=== PATIENT | female | born 1985 | race Caucasian/White ===

== ENCOUNTER 2018-02-21 16:24 | Emergency (ER) | payer OTHER ==
[2018-02-21 16:37] VITALS: BMI 26.8
[2018-02-21] MEDS ORDERED: SODIUM CHLORIDE 1,000 ML IV STA (16:39)
--- NOTE | 2018-02-21 16:40 | PDOC ---
Rapid Medical Evaluation Time Seen by Provider: 02/21/18 16:34 Medical Evaluation: Allergies Allergy/AdvReac Type Severity Reaction Status Date / Time No Known Allergies Allergy Verified 02/21/18 16:33 02/21/18 16:34 Pt presents to the ED for nausea and vomiting. Pt is 9 weeks . States she is unable to keep anything down for the past week. Reports a 16 pound weight loss . LMP 01/17/19. . Denies vaginal bleeding and cramping. Exam: Pt appears pale, NAD Orders: Labs, urine, IV insert, Fluids Pt to proceed to the ED for further evaluation Discharge Disposition - Diagnosis Nausea & vomiting - Referrals - Patient Instructions - Post Discharge Activity
[2018-02-21] MEDS ORDERED: ONDANSETRON 4 MG/2 ML VIAL IVPB ONE (16:49)
--- NOTE | 2018-02-21 17:06 | PDOC ---
History of Present Illness - General Chief Complaint: Nausea/Vomiting Stated Complaint: DEHYDRATION/9 WKS Time Seen by Provider: 02/21/18 16:34 History Source: Patient Exam Limitations: No Limitations - History of Present Illness Initial Comments: 02/21/18 17:02 CHIEF COMPLAINT: Vomiting HISTORY OF PRESENT ILLNESS: This is a previously healthy 32-year-old LMP December 17 who presents with 4 weeks of vomiting. She has been having worsening daily vomiting, about 5 episodes daily, and for the past 1.5 weeks has not been able to keep down any food. She has been unable to keep down fluids for several days. She reports 16 pound weight loss during this . She complains of headache and generalized weakness. She denies abdominal pain, vaginal bleeding, dysuria, or any other symptoms. Vital signs on arrival are unremarkable. Smoking: None Alcohol: None Drugs: None Social history: Lives with mother OB care: Received care at [facility] in [place]. Has visiting nurse coordinated through [facility] for first , unrelated to the symptoms. Has not yet had an ultrasound for this . REVIEW OF SYSTEMS: GENERAL/CONSTITUTIONAL: No fever or chills. 16 lb weight loss over past month. HEAD, EYES, EARS, NOSE AND THROAT: No change in vision. No ear pain or discharge. No sore throat. CARDIOVASCULAR: No chest pain or palpitations. RESPIRATORY: No cough, wheezing, or shortness of breath. GASTROINTESTINAL: See HPI. GENITOURINARY: No dysuria, frequency, or change in urination. MUSCULOSKELETAL: No joint or muscle swelling or pain. No neck or back pain. SKIN: No rash or easy bruising. NEUROLOGIC: Mild headache. No vertigo, loss of consciousness, or loss of sensation. PSYCHIATRIC: No depression or anxiety. ENDOCRINE: No increased thirst. No abnormal weight change. HEMATOLOGIC/LYMPHATIC: No anemia, easy bleeding, or history of blood clots. ALLERGIC/IMMUNOLOGIC: No hives or skin allergy. No latex allergy. PHYSICAL EXAM: GENERAL: The patient is awake, alert, and fully oriented, in no acute distress. HEAD: Normal with no signs of trauma. ENT: Mucous membranes very dry. Pupils equal, round and reactive to light, extraocular movements intact, sclera anicteric, conjunctiva clear. Neck supple. LUNGS: Clear to auscultation bilaterally. Normal excursion. No respiratory distress or use of accessory muscles. CV: RRR, S1/S2, no MRG. Cap refill < 2 sec. ABDOMEN: Soft, non-distended, non-tender. EXTREMITIES: Normal range of motion, no edema. NEUROLOGICAL: Normal speech, normal gait. CN II-XII grossly intact. PSYCH: Normal mood, normal affect. SKIN: Warm, dry, normal turgor, no rashes or lesions noted. Past History - Past Medical History Allergies/Adverse Reactions: Allergies Allergy/AdvReac Type Severity Reaction Status Date / Time No Known Allergies Allergy Verified 02/21/18 16:33 Home Medications: Ambulatory Orders Famotidine [Pepcid] 20 mg PO DAILY #30 tablet 02/21/18 Ondansetron [Zofran Odt -] 4 mg SL TID PRN #21 od.tablet 02/21/18 COPD: No - Immunization History Immunization Up to Date: Yes - Suicide/Smoking/Psychosocial Hx Smoking History: Never smoked *Physical Exam - Vital Signs Last Vital Signs Temp Pulse Resp BP Pulse Ox 98.7 F 70 18 125/74 99 02/21/18 16:34 02/21/18 16:34 02/21/18 16:34 02/21/18 16:34 02/21/18 16:34 ED Treatment Course - LABORATORY CBC & Chemistry Diagram: 02/21/18 17:12 02/21/18 17:12 - RADIOLOGY Radiology Studies Ordered: Category Date Time Status <14WKS US [US] Stat Ultrasound 02/21/18 16:50 Ordered Medical Decision Making - Medical Decision Making 02/21/18 17:05 A/P: 32-year-old female with hyperemesis gravidarum. 1. Labs including CBC CMP, UA 2. Ultrasound to assess well-being (no prior ultrasound during this ) 3. IV fluids 4. Zofran 8 mg IV piggyback for nausea 5. PO trial 02/21/18 19:20 Patient is feeling better and is tolerating apple juice. Ultrasound reviewed: Single live IUP 10 weeks with heart rate 176. *DC/Admit/Observation/Transfer Diagnosis at time of Disposition: First trimester Nausea & vomiting Qualifiers: Vomiting type: unspecified Vomiting Intractability: non-intractable Qualified Code(s): R11.2 - Nausea with vomiting, unspecified - Discharge Dispostion Disposition: HOME Condition at time of disposition: Stable Decision to Admit order: No - Prescriptions Prescriptions: Famotidine [Pepcid] 20 mg PO DAILY #30 tablet Ondansetron [Zofran Odt -] 4 mg SL TID PRN #21 od.tablet PRN Reason: Nausea - Referrals - Patient Instructions Printed Discharge Instructions: DI for Hyperemesis Gravidarum Additional Instructions: -Take Zofran for nausea and Pepcid for stomach discomfort as needed -Rest and stay well-hydrated; slowly introduce plain foods as tolerated -Follow up with [facility] next week -Return if you are unable to keep down fluids, or for any other concerning symptoms - Post Discharge Activity
[2018-02-21] MEDS ORDERED: FAMOTIDINE 20 MG/50 ML IVPB 20 MG in PREMIX 50 IVPB ONE (17:22)
[2018-02-21] MEDS ORDERED: ONDANSETRON 4 MG/2 ML VIAL ONE (17:23)
[2018-02-21] MEDS ORDERED: FAMOTIDINE 20 MG/50 ML IVPB 20 MG/50 ML MG IVPB ONE (17:24)
[2018-02-21 17:37] LABS: BASO % 0.3 % (0-2.0); EOS % 0.1 % (0-4.5); HEMATOCRIT 40.5 % (32.4-45.2); HEMOGLOBIN 14.3 GM/dL (10.7-15.3); LYMPH % 14.4 % (8-40); MCH 32.9 pg (25.7-33.7); MCHC 35.2 g/dl (32.0-36.0); MEAN CELL VOLUME 93.4 fl (80-96); MEAN PLT VOLUME 9.6 fl (7.5-11.1); MONO % 4.5 % (3.8-10.2); NEUT % 80.7 % (42.8-82.8); PLATELET COUNT 223 K/MM3 (134-434); RBC 4.34 M/mm3 (3.60-5.2); RDW 12.2 % (11.6-15.6); WHITE BLOOD COUNT 9.5 K/mm3 (4.0-10.0)
[2018-02-21 17:47] LABS: ALBUMIN 3.7 g/dl (3.4-5.0); ALK PHOS 19 U/L (45-117); ANION GAP 11 MMOL/L (8-16); BILIRUBIN,TOTAL 0.7 mg/dL (0.2-1.0); BLOOD UREA NITROGEN 8 mg/dL (7-18); CALCIUM 9.3 mg/dL (8.5-10.1); CHLORIDE 106 mmol/L (98-107); CO2 20 mmol/L (21-32); CREATININE 0.5 mg/dL (0.55-1.3); GLUCOSE,RANDOM 88 mg/dL (74-106); SGOT/AST 15 U/L (15-37); SGPT/ALT 30 U/L (13-61); SODIUM 137 mmol/L (136-145); TOT PROT 7.3 g/dl (6.4-8.2)
[2018-02-21] MEDS ORDERED: DEXTROSE 5%-NORMAL SALINE 1,000 ML IV SCH (18:30)
[2018-02-21 20:10] LABS: URINE APPEARANCE SLCLOUDY; URINE BILIRUBIN NEGATIVE (<2.0 mg/dL); URINE COLOR DKYELLOW; URINE GLUCOSE (UA) 3+ (NEGATIVE); URINE KETONE 2+ (NEGATIVE); URINE LEUK ESTERASE NEGATIVE (NEGATIVE); URINE NITRITE NEGATIVE (NEGATIVE); URINE PROTEIN NEGATIVE (NEGATIVE); URINE UROBILINOGEN NEGATIVE mg/dL (0.2-1.0)
[2018-02-21 20:53] VITALS: BP 126/74; PULSE 72; TEMP 98.6
== END 2018-02-21 20:53 | disposition home or self-care (01) ==
LOC: JER 16:24
PROC: 3E0337Z Introduction of Electrolytic and Water Balance Substance into Peripheral Vein, Percutaneous Approach (ICD-10-PCS; principal; 2018-02-21)
PROC: 3E033GC Introduction of Other Therapeutic Substance into Peripheral Vein, Percutaneous Approach (ICD-10-PCS; 2018-02-21)
PROC: 3E033GC Introduction of Other Therapeutic Substance into Peripheral Vein, Percutaneous Approach (ICD-10-PCS; 2018-02-21)
DX: O26.891 Other specified pregnancy related conditions, first trimester (principal); O21.0 Mild hyperemesis gravidarum; Z3A.10 10 weeks gestation of pregnancy
CPT/HCPCS: 36415; 76801-TC; 80053; 81003; 85025; 87086; 99284-25; J7030

== ENCOUNTER 2018-03-03 12:38 | Emergency (ER) | payer OTHER ==
[2018-03-03 12:48] VITALS: BMI 26.8
[2018-03-03] MEDS ORDERED: DEXTROSE 5%-NORMAL SALINE 1,000 ML IV ONE (13:32)
[2018-03-03] MEDS ORDERED: ONDANSETRON 4 MG/2 ML VIAL IVPUSH ONE (13:57)
[2018-03-03] MEDS ORDERED: FAMOTIDINE 20 MG/50 ML IVPB 20 MG/50 ML MG IVPB ONE ×2 (13:58→14:02)
[2018-03-03 14:01] LABS: BASO % 0.4 % (0-2.0); EOS % 0.1 % (0-4.5); HEMATOCRIT 39.8 % (32.4-45.2); HEMOGLOBIN 14.2 GM/dL (10.7-15.3); LYMPH % 11.5 % (8-40); MCH 33.2 pg (25.7-33.7); MCHC 35.6 g/dl (32.0-36.0); MEAN CELL VOLUME 93.2 fl (80-96); MEAN PLT VOLUME 9.1 fl (7.5-11.1); MONO % 3.9 % (3.8-10.2); NEUT % 84.1 % (42.8-82.8); PLATELET COUNT 212 K/MM3 (134-434); RBC 4.27 M/mm3 (3.60-5.2); RDW 12.5 % (11.6-15.6); WHITE BLOOD COUNT 9.1 K/mm3 (4.0-10.0)
[2018-03-03] MEDS ORDERED: ONDANSETRON 4 MG/2 ML VIAL ONE (14:02)
[2018-03-03 14:39] LABS: ALBUMIN 3.5 g/dl (3.4-5.0); ALK PHOS 20 U/L (45-117); ANION GAP 9 MMOL/L (8-16); BILIRUBIN,TOTAL 0.8 mg/dL (0.2-1); BLOOD UREA NITROGEN 7 mg/dL (7-18); CALCIUM 9.2 mg/dL (8.5-10.1); CHLORIDE 105 mmol/L (98-107); CO2 22 mmol/L (21-32); CREATININE 0.5 mg/dL (0.55-1.3); GLUCOSE,RANDOM 79 mg/dL (74-106); LIPASE 116 U/L (73-393); MAGNESIUM 2.1 mg/dL (1.8-2.4); SGOT/AST 20 U/L (15-37); SGPT/ALT 36 U/L (13-61); SODIUM 136 mmol/L (136-145)
--- NOTE | 2018-03-03 15:02 | PDOC ---
History of Present Illness - General Chief Complaint: Nausea/Vomiting Stated Complaint: 13 WEEKS /HG Time Seen by Provider: 03/03/18 13:27 History Source: Patient Exam Limitations: No Limitations - History of Present Illness Travel History: No Initial Comments: 03/03/18 15:03 32-year-old female with no past medical history presents to ED with continual nausea and vomiting despite taking Zofran for hyperemesis gravidarum. Patient states is currently 13 weeks is followed by [facility] and states has been able to tolerate liquids and solids since yesterday afternoon now with generalized fatigue and upper abdominal burning. Patient has no other complaints at this time. Timing/Duration: reports: intermittent Quality: reports: mild, burning Abdominal Pain Onset Location: reports: epigastric Activities at Onset: reports: eating Aggravating Factors: improves with: Eating Alleviating Factors: improves with: None Past History - Travel Traveled outside of the country in the last 30 days: No - Past Medical History Allergies/Adverse Reactions: Allergies Allergy/AdvReac Type Severity Reaction Status Date / Time No Known Allergies Allergy Verified 03/03/18 12:48 Home Medications: Ambulatory Orders Famotidine [Pepcid] 20 mg PO DAILY #30 tablet 02/21/18 Ondansetron [Zofran Odt -] 4 mg SL TID PRN #21 od.tablet 02/21/18 Ondansetron [Zofran Odt -] 8 mg SL TID PRN #21 od.tablet 03/03/18 COPD: No - Immunization History Immunization Up to Date: Yes - Suicide/Smoking/Psychosocial Hx Smoking History: Never smoked Patient Lives Alone: No Lives with/in: parents Review of Systems - Review of Systems Able to Perform ROS?: No Constitutional: Yes: Loss of Appetite, Weakness HEENTM: No: Symptoms Reported Respiratory: No: Symptoms reported Cardiac (ROS): No: Symptoms Reported ABD/GI: Yes: Nausea, Poor Appetite, Poor Fluid Intake, Vomiting, Abdominal cramping : No: Symptoms Reported Musculoskeletal: No: Symptoms Reported Integumentary: No: Symptoms Reported Neurological: No: Symptoms reported Hematologic/Lymphatic: No: Symptoms Reported *Physical Exam - Vital Signs Last Vital Signs Temp Pulse Resp BP Pulse Ox 99.3 F 79 18 107/69 99 03/03/18 12:45 03/03/18 12:45 03/03/18 12:45 03/03/18 12:45 03/03/18 12:45 - Physical Exam General Appearance: Yes: Nourished, Appropriately Dressed. No: Apparent Distress HEENT: positive: EOMI, PIPPA, TMs Normal, Pharynx Normal (dry). negative: Pale Conjunctivae Neck: positive: Supple Respiratory/Chest: positive: Lungs Clear, Normal Breath Sounds. negative: Respiratory Distress, Accessory Muscle Use Cardiovascular: positive: Regular Rhythm, Regular Rate. negative: Murmur Gastrointestinal/Abdominal: positive: Soft, Tenderness (Mild epigastric . no right upper quadrant or lower quadrant tenderness.) Musculoskeletal: negative: CVA Tenderness Extremity: positive: Normal Capillary Refill. negative: Pedal Edema Integumentary: positive: Normal Color, Warm, Moist Neurologic: positive: Motor Strength 5/5 (ambulatory) ED Treatment Course - LABORATORY CBC & Chemistry Diagram: 03/03/18 13:50 03/03/18 13:50 - ADDITIONAL ORDERS Additional order review: Laboratory Results 03/03/18 13:50 Sodium 136 Potassium 4.0 Chloride 105 Carbon Dioxide 22 Anion Gap 9 BUN 7 Creatinine 0.5 L Creat Clearance w eGFR > 60 Random Glucose 79 Calcium 9.2 Magnesium 2.1 Total Bilirubin 0.8 AST 20 ALT 36 Alkaline Phosphatase 20 L Total Protein 7.0 Albumin 3.5 Lipase 116 03/03/18 13:50 RBC 4.27 MCV 93.2 MCHC 35.6 RDW 12.5 MPV 9.1 Neutrophils % 84.1 H Lymphocytes % 11.5 D Monocytes % 3.9 Eosinophils % 0.1 Basophils % 0.4 - Medications Given in the ED: ED Medications Discontinued Medications Generic Name Dose Route Start Last Admin Trade Name Freq PRN Reason Stop Dose Admin Dextrose/Sodium Chloride 1,000 mls @ 1,000 mls/hr 03/03/18 13:32 03/03/18 13: 58 D5-Ns - IV 03/03/18 14:31 1,000 mls/hr ONCE ONE Administration Famotidine/Sodium Chloride 20 mg in 50 mls @ 100 mls/hr 03/03/18 13:58 14:02 Pepcid 20 Mg Premixed Ivpb - IVPB 03/03/18 14:27 100 mls/hr ONCE ONE Administration Ondansetron HCl 4 mg 03/03/18 13:57 03/03/18 14:02 Zofran Injection IVPUSH 03/03/18 13:58 4 mg ONCE ONE Administration Medical Decision Making - Medical Decision Making 03/03/18 15:07 Patient with hyperemesis gravidarum with no improvement after taking Zofran 4 mg sublingual as prescribed at her RN [facility]. Patient was here approximately 10 days ago had a confirmed single IUP at 10 weeks 0 days with normal laboratory findings. Patient arrives with dry mucous membranes concerning for dehydration, electrolyte derangement, and UTI. Patient ordered for labs, fluids antiemetics and will reevaluate shortly. 03/03/18 17:17 Laboratory Tests 03/03/18 17:00 Urine Protein 1+ H Urine Glucose (UA) 3+ H Urine Ketones 2+ H Urine Bilirubin Negative Urine Urobilinogen 2.0 H Ur Leukocyte Esterase Trace Urine WBC (Auto) 7 Urine RBC (Auto) 1 Ur Epithelial Cells Rare Urine Mucus Many Laboratory Tests 03/03/18 03/03/18 13:50 13:50 WBC 9.1 Hgb 14.2 Hct 39.8 Neutrophils % 84.1 H Sodium 136 Potassium 4.0 Chloride 105 Carbon Dioxide 22 Anion Gap 9 BUN 7 Creatinine 0.5 L Random Glucose 79 Calcium 9.2 Magnesium 2.1 Total Bilirubin 0.8 AST 20 ALT 36 Alkaline Phosphatase 20 L Total Protein 7.0 Albumin 3.5 Lipase 116 Was given a second liter of normal saline. Patient tolerating apple juice and ice chips. Patient be given a prescription for Zofran 8 mg versus for since she only has 1 tablet left. Patient also has no urinary complaints and urine culture was sent *DC/Admit/Observation/Transfer Diagnosis at time of Disposition: Nausea & vomiting - Discharge Dispostion Disposition: HOME Condition at time of disposition: Improved - Referrals - Patient Instructions Printed Discharge Instructions: DI for Hyperemesis Gravidarum Additional Instructions: Please eat small frequent meals that are bland and easy to swallow. Please take Zofran as prescribed from you new prescription given today. If symptoms do not improve please return to ED. Otherwise follow up with your RN [facility]. - Post Discharge Activity
[2018-03-03] MEDS ORDERED: SODIUM CHLORIDE 1,000 ML IV STA (15:08)
[2018-03-03 17:11] LABS: URINE APPEARANCE SLCLOUDY; URINE BILIRUBIN NEGATIVE (<2.0 mg/dL); URINE COLOR DKYELLOW; URINE GLUCOSE (UA) 3+ (NEGATIVE); URINE KETONE 2+ (NEGATIVE); URINE LEUK ESTERASE TRACE (NEGATIVE); URINE NITRITE NEGATIVE (NEGATIVE)
[2018-03-03 17:14] LABS: URINE PROTEIN 1+ (NEGATIVE)
[2018-03-03 17:16] LABS: EPI CELLS RARE /HPF (FEW); URINE MUCUS MANY
[2018-03-03 17:24] VITALS: BP 112/62; PULSE 84; TEMP 99.8
== END 2018-03-03 17:30 | disposition home or self-care (01) ==
LOC: JER 12:38
PROC: 3E0337Z Introduction of Electrolytic and Water Balance Substance into Peripheral Vein, Percutaneous Approach (ICD-10-PCS; principal; 2018-03-03)
PROC: 3E033GC Introduction of Other Therapeutic Substance into Peripheral Vein, Percutaneous Approach (ICD-10-PCS; 2018-03-03)
PROC: 3E033GC Introduction of Other Therapeutic Substance into Peripheral Vein, Percutaneous Approach (ICD-10-PCS; 2018-03-03)
DX: O26.891 Other specified pregnancy related conditions, first trimester (principal); O21.0 Mild hyperemesis gravidarum; Z3A.13 13 weeks gestation of pregnancy
CPT/HCPCS: 36415; 80053; 81003; 81015; 83690; 83735; 85025; 87086; 96361; 96365; 96375; 99283-25; J7030

== ENCOUNTER 2018-08-21 08:51 | Emergency (ER) | payer OTHER ==
[2018-08-21 08:57] VITALS: BMI 29.1
[2018-08-21] MEDS ORDERED: SODIUM CHLORIDE 500 ML IV STA (09:33)
[2018-08-21] MEDS ORDERED: METOCLOPRAMIDE HCL INJECTION 10 MG/2 ML VIAL IVPUSH ONE (09:33)
[2018-08-21] MEDS ORDERED: METOCLOPRAMIDE HCL INJECTION 10 MG/2 ML VIAL ONE (09:45)
--- NOTE | 2018-08-21 09:46 | PDOC ---
History of Present Illness - General Chief Complaint: Lightheaded Stated Complaint: DIZZNESS/VOMITING 35WKS/PRG Time Seen by Provider: 08/21/18 09:33 History Source: Patient Exam Limitations: Clinical Condition - History of Present Illness Initial Comments: 08/21/18 09:41 Patient with 35 weeks no past medical history present with complaint of sudden onset of dizziness, nausea and light sensitivity after sitting movement of the hand when getting out of bed this morning. Patient denies vomiting, fever, chills. Denies vaginal bleeding. Patient did not take anything for symptoms. Patient denies abdominal pains or diarrhea. Timing/Duration: 4-6 hours Past History - Past Medical History Allergies/Adverse Reactions: Allergies Allergy/AdvReac Type Severity Reaction Status Date / Time No Known Allergies Allergy Verified 08/21/18 08:54 Home Medications: Ambulatory Orders Aspirin 81 mg PO DAILY 08/21/18 Metoclopramide HCl [Reglan] 10 mg PO Q8H PRN #12 tablet 08/21/18 [place]-3 Fatty Acids [[place]-3] 1,000 mg PO DAILY 08/21/18 Pediatric Multivitamin No.42 [Flintstones] 1 each PO DAILY 08/21/18 COPD: No - Immunization History Immunization Up to Date: Yes - Suicide/Smoking/Psychosocial Hx Smoking History: Never smoked Hx Alcohol Use: No Drug/Substance Use Hx: No Review of Systems - Review of Systems Able to Perform ROS?: Yes Is the patient limited [place]an proficient: No Constitutional: No: Malaise, Weakness HEENTM: No: Symptoms Reported, See HPI, Eye Pain, Blurred Vision, Tearing, Recent change in vision, Double Vision, Cataracts, Ear Pain, Ocular Prothesis, Ear Discharge, Nose Pain, Nose Congestion, Tinnitus, Nose Bleeding, Hearing Loss , Throat Pain, Throat Swelling, Mouth Pain, Dental Problems, Difficulty Swallowing, Mouth Swelling, Other Respiratory: No: Symptoms reported, See HPI, Cough, Orthopnea, Shortness of Breath, SOB with Exertion, SOB at Rest, Stridor, Wheezing, Productive cough, Hemoptysis, Other Cardiac (ROS): No: Symptoms Reported, See HPI, Chest Pain, Edema, Irregular Heart Rate, Lightheadedness, Palpitations, Syncope, Chest Tightness, Other ABD/GI: Yes: Vomiting. No: Constipated, Diarrhea, Nausea, Abdominal cramping Neurological: Yes: See HPI, Dizziness. No: Headache, Weakness All Other Systems: Reviewed and Negative *Physical Exam - Vital Signs Last Vital Signs Temp Pulse Resp BP Pulse Ox 98.0 F 90 18 117/74 98 08/21/18 08:54 08/21/18 08:54 08/21/18 08:54 08/21/18 08:54 08/21/18 08:54 - Physical Exam Comments: 08/21/18 09:44 GENERAL: Well developed, well nourished. Awake and alert. No acute distress. HEENT: Normocephalic, atraumatic. PERRLA, EOMI. No conjunctival pallor. Sclera are non-icteric. Moist mucous membranes. Oropharynx is clear. NECK: Supple. Full ROM. CARDIOVASCULAR: Regular rate and rhythm. No murmurs, rubs, or gallops. Distal pulses are 2+ and symmetric. PULMONARY: No evidence of respiratory distress. Lungs clear to auscultation bilaterally. No wheezing, rales or rhonchi. ABDOMINAL: 35 week gravid abdomen.Soft. Non-tender. No rebound or guarding. No organomegaly. Normoactive bowel sounds. MUSCULOSKELETAL Normal range of motion at all joints. EXTREMITIES: No cyanosis. No clubbing. No edema. No calf tenderness. SKIN: Warm and dry. Normal capillary refill. No rashes. No jaundice. NEUROLOGICAL: Alert, awake, appropriate. Gait is normal without ataxia. PSYCHIATRIC: Cooperative. Good eye contact. Appropriate mood General Appearance: Yes: Nourished, Appropriately Dressed. No: Apparent Distress Moderate Sedation - Procedure Monitoring Vital Signs: Procedure Monitoring Vital Signs Temperature 98.0 F 08/21/18 08:54 Pulse Rate 90 08/21/18 08:54 Respiratory Rate 18 08/21/18 08:54 Blood Pressure 117/74 08/21/18 08:54 O2 Sat by Pulse Oximetry (%) 98 08/21/18 08:54 ED Treatment Course - LABORATORY CBC & Chemistry Diagram: 08/21/18 09:42 08/21/18 09:44 Medical Decision Making - Medical Decision Making 08/21/18 09:44 Patient 35 weeks with no medical history present with complaint of lightheadedness, spinning sensation and nausea was light sensitivity upon wake this morning. Patient denies vomiting or any other symptoms. Clinical exam unremarkable with normal neuro exam. Symptoms likely vertigo. CBC, CMP labs ordered. Reglan 10 mg IV and normal saline 500 mg IV ordered. Reassess after labs. 08/21/18 10:33 Patient report complete resolve of symptoms with reglan and IVFs. labs pending 08/21/18 10:45 labs with no significant findings. Patient stable for discharge with strict follow-up. Patient hads f/u tomorrow for Ultrasound by OB. Patient report feels better to go home and clear to be sent to L&D for evaluation prior to d/c *DC/Admit/Observation/Transfer Diagnosis at time of Disposition: Vertigo - Discharge Dispostion Disposition: HOME Condition at time of disposition: Stable Decision to Admit order: No - Prescriptions Prescriptions: Metoclopramide HCl [Reglan] 10 mg PO Q8H PRN #12 tablet PRN Reason: vertigo - Referrals - Patient Instructions Printed Discharge Instructions: Benign Paroxysmal Positional Vertigo Additional Instructions: Come back to emergency room if severe headache, dizziness with vomiting. Increase fluid intake. Follow-up tomorrow as scheduled by OB for ultrasound., To emergency room if new symptoms or vaginal bleeding. - Post Discharge Activity
[2018-08-21 09:57] LABS: BASO % 0.1 % (0-2.0); EOS % 0.4 % (0-4.5); HEMOGLOBIN 12.5 GM/dL (10.7-15.3); LYMPH % 16.9 % (8-40); MCH 34.1 pg (25.7-33.7); MCHC 34.8 g/dl (32.0-36.0); MEAN CELL VOLUME 98.1 fl (80-96); MEAN PLT VOLUME 7.6 fl (7.5-11.1); MONO % 6.4 % (3.8-10.2); NEUT % 76.2 % (42.8-82.8); PLATELET COUNT 201 K/MM3 (134-434); RBC 3.67 M/mm3 (3.60-5.2); RDW 13.4 % (11.6-15.6)
--- NOTE | 2018-08-21 10:03 | PDOC ---
*Physical Exam - Vital Signs Last Vital Signs Temp Pulse Resp BP Pulse Ox 98.0 F 90 18 117/74 98 08/21/18 08:54 08/21/18 08:54 08/21/18 08:54 08/21/18 08:54 08/21/18 08:54 ED Treatment Course - LABORATORY CBC & Chemistry Diagram: 08/21/18 09:42 08/21/18 09:44 - Medications Given in the ED: ED Medications Discontinued Medications Generic Name Dose Route Start Last Admin Trade Name Freq PRN Reason Stop Dose Admin Metoclopramide HCl 10 mg 08/21/18 09:33 08/21/18 09:53 Reglan Injection - IVPUSH 08/21/18 09:34 10 mg ONCE ONE Administration Medical Decision Making - Medical Decision Making 08/21/18 09:59 33 yp 35 week presenting with sudden onset of vertigo No headache Pt reports vomiting Pt neuro exam wnl Will do labs Will give IV F Likely BPPV vs Labrynthitis Unlikely dural sinus thrombosis given NO headache Will consult pt [employer] as well as Neuro Will re assess 08/21/18 10:43 Laboratory Tests 08/21/18 08/21/18 09:42 09:44 WBC 12.0 H Hgb 12.5 Hct 36.0 Plt Count 201 Sodium 139 Potassium 3.8 Chloride 108 H Carbon Dioxide 23 BUN 2 L* Creatinine 0.4 L Random Glucose 83 *DC/Admit/Observation/Transfer Diagnosis at time of Disposition: Vertigo - Discharge Dispostion Disposition: HOME Condition at time of disposition: Stable - Prescriptions Prescriptions: Metoclopramide HCl [Reglan] 10 mg PO Q8H PRN #12 tablet PRN Reason: vertigo - Referrals Referrals: Chayito Solares MD [Staff Physician] - (DISCHARGE HOME; DRINK 6-8 GLASSES OF WATER A DAY AND EAT SMALL FREQUENT LIGHT MEALS;IF N/V PERSISTS RETURN TO HOSPITAL; WHEN CONTRACTIONS ARE EVERY FIVE MINUTES, IF YOUR WATER BREAKS, IF YOU EXPERIENCE VAGINAL BLEEDING LIKE A PERIOD OR DECREASED MOVEMENT RETURN TO HOSPITAL; IF NO CHANGE KEEP SCHEDULED US APPOINTMENT FOR TOMORROW AND VISIT ON ; ANY QUESTIONS/PROBLEMS CALL CLINIC OR LABOR AREA [phone]) - Patient Instructions Printed Discharge Instructions: Benign Paroxysmal Positional Vertigo Additional Instructions: Come back to emergency room if severe headache, dizziness with vomiting. Increase fluid intake. Follow-up tomorrow as scheduled by OB for ultrasound., To emergency room if new symptoms or vaginal bleeding. DISCHARGE HOME; DRINK 6-8 GLASSES OF WATER A DAY AND EAT SMALL FREQUENT LIGHT MEALS;IF N/V PERSISTS RETURN TO HOSPITAL; WHEN CONTRACTIONS ARE EVERY FIVE MINUTES, IF YOUR WATER BREAKS, IF YOU EXPERIENCE VAGINAL BLEEDING LIKE A PERIOD OR DECREASED MOVEMENT RETURN TO HOSPITAL; IF NO CHANGE KEEP SCHEDULED US APPOINTMENT FOR TOMORROW AND VISIT ON ; ANY QUESTIONS/PROBLEMS CALL CLINIC OR LABOR AREA [phone] - Post Discharge Activity
[2018-08-21 10:24] LABS: ALBUMIN 2.6 g/dl (3.4-5.0); ALK PHOS 68 U/L (45-117); ANION GAP 7 MMOL/L (8-16); BILIRUBIN,TOTAL 0.3 mg/dL (0.2-1); CALCIUM 9.1 mg/dL (8.5-10.1); CHLORIDE 108 mmol/L (98-107); CO2 23 mmol/L (21-32); CREATININE 0.4 mg/dL (0.55-1.3); GLUCOSE,RANDOM 83 mg/dL (74-106); POTASSIUM 3.8 mmol/L (3.5-5.1); SGOT/AST 17 U/L (15-37); SGPT/ALT 16 U/L (13-61); SODIUM 139 mmol/L (136-145); TOT PROT 5.7 g/dl (6.4-8.2)
[2018-08-21 10:30] LABS: BLOOD UREA NITROGEN 2 mg/dL (7-18)
[2018-08-21 11:07] LABS: ANISOCYTOSIS 0; MACROCYTOSIS 1+; OVALOCYTE 1+; PLATELET ESTIMATE NORMAL
[2018-08-21] MEDS ORDERED: DEXTROSE 5%-LACTATED RINGERS 500 ML IV SCH ×2 (11:30→12:30)
[2018-08-21 12:35] VITALS: BP 109/65; PULSE 100; TEMP 98.1
== END 2018-08-21 13:35 | disposition home or self-care (01) ==
LOC: JER 08:51
PROC: 3E033GC Introduction of Other Therapeutic Substance into Peripheral Vein, Percutaneous Approach (ICD-10-PCS; principal; 2018-08-21)
PROC: 3E0337Z Introduction of Electrolytic and Water Balance Substance into Peripheral Vein, Percutaneous Approach (ICD-10-PCS; 2018-08-21)
DX: O26.893 Other specified pregnancy related conditions, third trimester (principal); Z3A.35 35 weeks gestation of pregnancy; R42 Dizziness and giddiness
CPT/HCPCS: 36415; 80053; 85025; 99282-25

== ENCOUNTER 2018-09-27 04:35 | Inpatient (IN) | payer OTHER ==
[2018-09-27] MEDS ORDERED: DEXTROSE 5%-LACTATED RINGERS 1,000 ML IV SCH (20:00)
--- NOTE | 2018-09-27 20:04 | HP ---
Past Medical History - Admission Chief Complaint: Postdates History of Present Illness: 33 yo , @ 40 weeks gestation, EDC 09/21/18, sent from [facility] for BPP. Patient was found to be 3-4cm dilated. Decision made for admission. History Source: Patient Limitations to Obtaining History: No Limitations - Past Medical History ...: 1 ...Para: 0 ...Term: 0 ...: 0 ...Spon : 0 ...Induced : 0 ...LMP: 12/17/17 ... Weeks Gestation by Dates: 40.3 ...EDC by Dates: 09/24/18 ...EDC by Sono: 09/21/18 - Past Surgical History Past Surgical History: Yes: None Hx Myomectomy: No Hx Transabdominal Cerclage: No - Smoking History Smoking history: Never smoked - Alcohol/Substance Use Hx Alcohol Use: No - Social History History of Recent Travel: No Home Medications - Allergies Allergies/Adverse Reactions: Allergies Allergy/AdvReac Type Severity Reaction Status Date / Time No Known Allergies Allergy Verified 08/21/18 12:01 - Home Medications Home Medications: Ambulatory Orders [place]-3 Fatty Acids [[place]-3] 1,000 mg PO DAILY 08/21/18 Pediatric Multivitamin No.42 [Flintstones] 1 tab PO DAILY 08/21/18 Family Disease History - Family Disease History Family History: Unremarkable Review of Systems - Review of Systems Constitutional: reports: No Symptoms Eyes: reports: No Symptoms HENT: reports: No Symptoms Neck: reports: No Symptoms Cardiovascular: reports: No Symptoms Respiratory: reports: No Symptoms Gastrointestinal: reports: No Symptoms Genitourinary: reports: Pain Breasts: reports: No Symptoms Reported Musculoskeletal: reports: No Symptoms Integumentary: reports: No Symptoms Neurological: reports: No Symptoms Endocrine: reports: No Symptoms Psychiatric: reports: No Symptoms Pain Intensity: 3 Physical Exam - Maternity Vital Signs: Vital Signs Temperature 98.2 F 09/27/18 17:30 Pulse Rate 87 09/27/18 17:30 Respiratory Rate 20 09/27/18 17:30 Blood Pressure 121/74 09/27/18 17:30 O2 Sat by Pulse Oximetry (%) Constitutional: Yes: Well Nourished Eyes: Yes: Conjunctiva Clear HENT: Yes: Atraumatic Neck: Yes: Supple Cardiovascular: Yes: Regular Rate and Rhythm Lungs: Clear to auscultation - Abdominal Exam/OB Number of Fetuses: Single Presentation: Vertex - Vaginal Exam/OB Dilatation (cm): 3-4 Effacement (%): 80 Presentation: Vertex/Position Station: -2 - Physical Exam Musculoskeletal: Yes: WNL Extremities: Yes: WNL ...Motor Strength: WNL Psychiatric: Yes: Alert, Oriented Problem List - Problems (1) Post-dates Code(s): O48.0 - POST-TERM Qualifiers: Post-term type: 40-42 weeks gestation Qualified Code(s): O48.0 - Post-term Assessment/Plan Posterm Admit for augmentation of labor Anticipate
[2018-09-27] MEDS ORDERED: OXYTOCIN 30 UNITS in 0.9% NS 30 UNIT/500 ML INFUS.BAG IVPB SCH (20:15)
[2018-09-27] MEDS ORDERED: OXYTOCIN 30 UNITS in 0.9% NS 30 UNIT/500 ML INFUS.BAG IVPB ONE (20:56)
[2018-09-27 20:58] LABS: BASO % 0.1 % (0-2.0); EOS % 0.2 % (0-4.5); HEMATOCRIT 39.9 % (32.4-45.2); HEMOGLOBIN 13.9 GM/dL (10.7-15.3); LYMPH % 16.8 % (8-40); MCHC 34.9 g/dl (32.0-36.0); MEAN CELL VOLUME 97.4 fl (80-96); MEAN PLT VOLUME 8.4 fl (7.5-11.1); MONO % 6.1 % (3.8-10.2); NEUT % 76.8 % (42.8-82.8); PLATELET COUNT 192 K/MM3 (134-434); RDW 13.4 % (11.6-15.6); WHITE BLOOD COUNT 13.4 K/mm3 (4.0-10.0)
[2018-09-27 21:21] LABS: ANION GAP 10 MMOL/L (8-16); BLOOD UREA NITROGEN 4 mg/dL (7-18); CALCIUM 9.9 mg/dL (8.5-10.1); CHLORIDE 103 mmol/L (98-107); CO2 24 mmol/L (21-32); CREATININE 0.4 mg/dL (0.55-1.3); GLUCOSE,RANDOM 121 mg/dL (74-106); INR 0.92 (0.83-1.09); POTASSIUM 3.7 mmol/L (3.5-5.1); PROTHROMBIN TIME (PATIENT) 10.9 SEC (9.7-13.0); SODIUM 137 mmol/L (136-145)
[2018-09-27 21:26] VITALS: BMI 30.9
[2018-09-27] MEDS ORDERED: NALOXONE HCL 0.4 MG/ML VIAL IVPUSH PRN (21:45)
[2018-09-27] MEDS ORDERED: FENTANYL/BUPIVACAINE/NS/PF - PCEA - 50 ML DISP.SYRIN EP ONE (21:45)
[2018-09-27] MEDS ORDERED: BUPIVACAINE HCL/PF 0.25% (2.5MG/ML) 10 ML VIAL ONE (21:51)
[2018-09-27] MEDS ORDERED: LIDO 2%/EPI 1:200000 PRESRVFRE (20 ML SDVIAL) ONE (21:52)
[2018-09-27] MEDS ORDERED: FENTANYL/BUPIVACAINE/NS/PF - PCEA - 50 ML DISP.SYRIN EP SCH (22:00)
[2018-09-27] MEDS ORDERED: ELECTROLYTE-148 SOLN 1,000 ML IV SCH (22:15)
[2018-09-28] MEDS ORDERED: FENTANYL/BUPIVACAINE/NS/PF - PCEA - 50 ML DISP.SYRIN EP ONE ×3 (01:50→09:08)
[2018-09-28] MEDS ORDERED: OXYTOCIN 20 UNITS in 0.9% NS 20 UNIT/1,000 ML INFUS.BAG IV ONE ×2 (10:48→14:34)
[2018-09-28] MEDS ORDERED: BISACODYL 10 MG SUPP.RECT RC PRN (12:40)
[2018-09-28] MEDS ORDERED: BENZOCAINE 20% 57 GM BOTTLE TP PRN (12:40)
[2018-09-28] MEDS ORDERED: METHYLERGONOVINE MALEATE 0.2 MG/1 ML AMP IM PRN (12:40)
[2018-09-28] MEDS ORDERED: BENZOCAINE 28 GM HEMORRHOIDAL OINTMENT TP PRN (12:40)
[2018-09-28] MEDS ORDERED: WITCH HAZEL 50% (TUCKS) 40 PAD/JAR PAD TP PRN (12:40)
--- NOTE | 2018-09-28 12:43 | PN ---
Delivery - Delivery Vaginal Delivery: Spontaneous Type of Anesthesia: Epidural Episiotomy/Laceration: 3rd degree EBL (cc): 350 Delivery, Single - [place] Feeding Plan Initial Plan: Exclusive throughout hospitalization Remarks - Remarks Remarks: Normal spontaneous vaginal delivery of a live girl over third degree laceration. Nose / Oropharynx suctioned @ perineum. Cord clamped and cut. Placenta expelled spontaneously intact. Laceration repaired with 2-Chromic. Mother in stable condition.
[2018-09-28] MEDS ORDERED: OXYTOCIN 20 UNITS in 0.9% NS 20 UNIT/1,000 ML INFUS.BAG IV SCH (12:45)
[2018-09-28] MEDS ORDERED: IBUPROFEN 600 MG TABLET (FP) PO ONE (13:45)
[2018-09-28] MEDS ORDERED: ACETAMINOPHEN 325 MG TABLET (FP) ONE (13:46)
[2018-09-28] MEDS: IBUPROFEN 600 MG TABLET (FP) PO PRN ×2 (13:50→18:18)
[2018-09-28] MEDS: ACETAMINOPHEN 325 MG TABLET (FP) PO PRN ×2 (13:50→18:18)
[2018-09-28] MEDS: FERROUS SO4 325 MG TABLET (FP) PO SCH (21:43)
[2018-09-29 07:20] LABS: BASO % 0.2 % (0-2.0); EOS % 0.2 % (0-4.5); HEMATOCRIT 28.8 % (32.4-45.2); LYMPH % 14.2 % (8-40); MCH 33.7 pg (25.7-33.7); MCHC 34.6 g/dl (32.0-36.0); MEAN CELL VOLUME 97.6 fl (80-96); MONO % 5.4 % (3.8-10.2); PLATELET COUNT 189 K/MM3 (134-434); RBC 2.95 M/mm3 (3.60-5.2); RDW 13.5 % (11.6-15.6); WHITE BLOOD COUNT 19.1 K/mm3 (4.0-10.0)
[2018-09-29] MEDS ORDERED: CEFAZOLIN 1 GM/D5W 1 GM/50 ML BAG IVPB ONE (07:51)
--- NOTE | 2018-09-29 07:53 | PN ---
Post Progress Note - Subjective Subjective: 33 yo Para 1 status post normal vaginal delivery, seen and evaluated. Doing well. Post Day: 1 Type of Delivery: Vital Signs: Vital Signs Temperature 98.3 F 09/29/18 05:27 Pulse Rate 87 09/29/18 05:27 Respiratory Rate 20 09/29/18 05:27 Blood Pressure 98/63 09/29/18 05:27 O2 Sat by Pulse Oximetry (%) 98 09/28/18 14:11 Breast Exam: Yes: Soft Uterus: Yes: Fundus Firm Abdomen/GI: Yes: Abdomen soft, Tolerating PO Lochia: Yes: Rubra Lochia, amount: Moderate Extremities: Yes: Calves non-tender Perineum: Yes: Laceration (Healing wound) Activity: Ambulating - Labs Labs: CBC WBC 19.1 K/mm3 (4.0-10.0) H 09/29/18 06:00 RBC 2.95 M/mm3 (3.60-5.2) L 09/29/18 06:00 Hgb 10.0 GM/dL (10.7-15.3) L 09/29/18 06:00 Hct 28.8 % (32.4-45.2) L D 09/29/18 06:00 MCV 97.6 fl (80-96) H 09/29/18 06:00 MCH 33.7 pg (25.7-33.7) 09/29/18 06:00 MCHC 34.6 g/dl (32.0-36.0) 09/29/18 06:00 RDW 13.5 % (11.6-15.6) 09/29/18 06:00 Plt Count 189 K/MM3 (134-434) 09/29/18 06:00 MPV 8.0 fl (7.5-11.1) 09/29/18 06:00 Absolute Neuts (auto) 15.3 K/mm3 (1.5-8.0) H 09/29/18 06:00 Neutrophils % 80.0 % (42.8-82.8) 09/29/18 06:00 Lymphocytes % 14.2 % (8-40) 09/29/18 06:00 Monocytes % 5.4 % (3.8-10.2) 09/29/18 06:00 Eosinophils % 0.2 % (0-4.5) 09/29/18 06:00 Basophils % 0.2 % (0-2.0) 09/29/18 06:00 Nucleated RBC % 0 % (0-0) 09/29/18 06:00 Problem List - Problems (1) Post-dates Code(s): O48.0 - POST-TERM Qualifiers: Post-term type: 40-42 weeks gestation Qualified Code(s): O48.0 - Post-term (2) Status post normal vaginal delivery Code(s): ADG3406 -
[2018-09-29] MEDS: IBUPROFEN 600 MG TABLET (FP) PO PRN (09:15)
[2018-09-29] MEDS: ACETAMINOPHEN 325 MG TABLET (FP) PO PRN (09:18)
[2018-09-29] MEDS: PRENATAL VITAMINS W/ FOLIC ACID TABLET (FP) PO SCH (09:18)
[2018-09-29] MEDS: FERROUS SO4 325 MG TABLET (FP) PO SCH ×2 (09:18→21:18)
[2018-09-29] MEDS ORDERED: SENNOSIDES/DOCUSATE COMBO (SENNA PLUS) TABLET (UD) PO PRN (22:00)
--- NOTE | 2018-09-30 04:16 | DS ---
Physical Exam-[employer] Vital Signs: Vital Signs Temperature 97.6 F 09/29/18 20:33 Pulse Rate 96 H 09/29/18 20:33 Respiratory Rate 20 09/29/18 20:33 Blood Pressure 119/76 09/29/18 20:33 O2 Sat by Pulse Oximetry (%) 98 09/28/18 14:11 Constitutional: Yes: Well Nourished Eyes: Yes: Conjunctiva Clear HENT: Yes: Atraumatic Neck: Yes: Supple Cardiovascular: Yes: Regular Rate and Rhythm Respiratory: Yes: Regular Gastrointestinal: Yes: Normal Bowel Sounds External Genitalia: Yes: Normal Vaginal Exam: Yes: Normal Cervix: Yes: Normal Uterus: Yes: Firm ....Post : Yes: Uterus firm, Moderate lochia serosa Breast(s): Yes: WNL Musculoskeletal: Yes: WNL Extremities: Yes: WNL Neurological: Yes: Alert, Oriented ...Motor Strength: WNL Psychiatric: Yes: Alert, Oriented Labs: CBC, BMP 09/29/18 06:00 09/27/18 20:30 Delivery - Delivery Vaginal Delivery: Spontaneous Type of Anesthesia: Epidural Episiotomy/Laceration: Perineal Extension/lac, 3rd degree EBL (cc): 350 Delivery, Single - Stages of Labor Date 1st Stage Initiatied: 09/27/18 Time 1st Stage Initiated: 21:00 Date 2nd Stage Initiated: 09/28/18 Time 2nd Stage Initiated: 10:50 Date of Delivery: 09/28/18 Time of Delivery: 12:18 Time Placenta Delivered: 12:25 - Condition of Health Technician Hearing/Cone Cleaner Present: No Gender: Female Weight: 7 lb 12 oz Position: Right, OA Total Hours ROM (Hrs/Mins): 14HR 20 MINS - 1 Minute Total Score: 9 5 Minutes Total Score: 9 - Feeding Plan Initial Plan: Exclusive throughout hospitalization Discharge Summary Reason For Visit: LABOR Current Active Problems Post-dates (Acute) Status post normal vaginal delivery (Acute) Procedures: Principal: Normal spontaneous vaginal delivery Hospital Course: care, Psychiatry was consulted due to h/o mental disorder. Condition: Good - Instructions Diet, Activity, Other Instructions: Regular diet No douching, no sexual intercourse x 6 weeks F/U with MD in 6 weeks. Disposition: HOME - Home Medications Comprehensive Discharge Medication List: Ambulatory Orders Pine-3 Fatty Acids [Pine-3] 1,000 mg PO DAILY 08/21/18 Pediatric Multivitamin No.42 [Flintstones] 1 tab PO DAILY 08/21/18
[2018-09-30 08:35] LABS: BASO % 0.1 % (0-2.0); EOS % 0.6 % (0-4.5); HEMOGLOBIN 9.7 GM/dL (10.7-15.3); LYMPH % 16.2 % (8-40); MCHC 34.7 g/dl (32.0-36.0); MEAN CELL VOLUME 97.8 fl (80-96); MONO % 5.5 % (3.8-10.2); NEUT % 77.6 % (42.8-82.8); PLATELET COUNT 218 K/MM3 (134-434); RBC 2.86 M/mm3 (3.60-5.2); RDW 13.6 % (11.6-15.6); WHITE BLOOD COUNT 16.8 K/mm3 (4.0-10.0)
--- NOTE | 2018-09-30 08:36 | CON.PSY ---
Psychiatry Consult Chief Complaint: 33 year old female seen for psych eval. History of Psych Illness when she was a teenager. Patient reports feeling anxious but not depressed and happy with the baby. No homicidal or suicidal thoughts. Symptoms: reports: Anxiety - Previous Psychiatric Treatment Outpatient: Less than 6 mos ago Inpatient: 2 or more prior admissions - Previous Substance Abuse Treatment Outpatient: None Inpatient: None - Reason for Previous Treatment Reason for Previous Treatment: Major Depression - Current Medications Current Medications: Active Medications Acetaminophen (Tylenol -) 650 mg PO Q3H PRN PRN Reason: PAIN Last Admin: 09/29/18 09:18 Dose: 650 mg Benzocaine (Americaine 20% Caruthers -) 1 spray TP PRN PRN PRN Reason: PAIN Last Admin: 09/28/18 18:17 Dose: 1 spray Benzocaine (Americaine Ointment -) 1 applic TP PRN PRN PRN Reason: PAIN Bisacodyl (Dulcolax Suppository -) 10 mg RC PRN PRN PRN Reason: CONSTIPATION Fentanyl/Bupivacaine/Sodium Chlor (Bupivicaine 0.125%/Fentanyl 2mcg/Ml Pcea) 50 ml EP ASDIR MARIA M; Protocol Last Admin: 09/27/18 22:00 Dose: 50 ml Ferrous Sulfate (Feosol -) 325 mg PO BID MARIA M Last Admin: 09/29/18 21:18 Dose: 325 mg Dextrose/Lactated Ringer's (D5-Lr -) 1,000 mls @ 125 mls/hr IV ASDIR MARIA M Oxytocin/Sodium Chloride (Normal Saline+30 Units Oxytocin) 30 unit in 500 mls @ 1 mls/hr IVPB TITR MARIA M; Protocol Last Titration: 09/28/18 06:30 Dose: 1.2 unit/hr, 20 mls/hr Parenteral Electrolytes (Plasma-Lyte 148 -) 1,000 mls @ 125 mls/hr IV ASDIR MARIA M Last Admin: 09/27/18 20:33 Dose: 125 mls/hr Oxytocin/Sodium Chloride (Normal Saline+20 Units Oxytocin -) 20 unit in 1,000 mls @ 125 mls/hr IV ASDIR MARIA M Last Admin: 09/28/18 12:25 Dose: 125 mls/hr Ibuprofen (Motrin -) 600 mg PO Q4H PRN PRN Reason: PAIN Last Admin: 09/29/18 09:15 Dose: 600 mg Methylergonovine Maleate (Methergine Injection -) 0.2 mg IM Q4H PRN PRN Reason: EXCESSIVE BLEEDING (L&D) Naloxone HCl (Narcan -) 0.4 mg IVPUSH PRN PRN PRN Reason: Sedation Multivit/Folic Acid/Iron ( Vitamins (Sjr) -) 1 tab PO DAILY MARIA M Last Admin: 09/29/18 09:18 Dose: 1 tab Senna/Docusate Sodium (Pericolace -) 2 tablet PO HS PRN PRN Reason: CONSTIPATION Witch Yolanda/Glycerin (Tucks Pads -) 1 pad TP PRN PRN PRN Reason: PAIN - Allergies Allergies: Allergies Allergy/AdvReac Type Severity Reaction Status Date / Time No Known Allergies Allergy Verified 08/21/18 12:01 - Current Living Status Usual Living Arrangement: With Parent - Current Mental Status Evaluation Appearance: Well Groomed Attitude: Cooperative - Affect Affect: Full Range Appropriateness: Appropriate to Content - Mood Mood: Anxious - Speech/Language Expressive: Coherent - Psychomotor Activity Psychomotor Activity: Normal - Thought Process Thought Process: Intact - Thought Content Hallucinations: Absent Delusions: Absent - Self Perception Self Perception: No Impairment - Concentration Serial Sevens Intact: Yes Simple Calculations Intact: Yes - Abstraction Proverb Interpretation: Intact Judgement: Intact - Insight Insight: Intact - Impulse Control Impulse Control: Good Control - Suicidal Ideation Suicidal Ideation: No - Homicidal Ideation Homicidal Ideation: No Assessment/Plan 1) patient is not suicidal or Homicidal or Psychotic at this time. 2) Discharge in when medically stable. 3) will follow up with A in [place] with her THerapist.
[2018-09-30] MEDS: IBUPROFEN 600 MG TABLET (FP) PO PRN (08:39)
[2018-09-30] MEDS: ACETAMINOPHEN 325 MG TABLET (FP) PO PRN (08:40)
[2018-09-30 09:04] VITALS: BP 104/67; PULSE 85; TEMP 98.6
[2018-09-30] MEDS: FERROUS SO4 325 MG TABLET (FP) PO SCH (09:55)
[2018-09-30] MEDS: PRENATAL VITAMINS W/ FOLIC ACID TABLET (FP) PO SCH (09:56)
== END 2018-09-30 13:30 | disposition home or self-care (01) | DRG 542 ==
LOC: JDEL 04:35 → JLDR 19:40 → J3W 09-28 14:40
PROVIDERS: ADMIT Obstetrics & Gynecology; ATTEND Obstetrics & Gynecology
PROC: 0DQR0ZZ Repair Anal Sphincter, Open Approach (ICD-10-PCS; principal; 2018-09-28)
PROC: 10E0XZZ Delivery of Products of Conception, External Approach (ICD-10-PCS; 2018-09-28)
DX: O48.0 Post-term pregnancy (principal); O70.20 Third degree perineal laceration during delivery, unspecified; Z3A.40 40 weeks gestation of pregnancy; Z37.0 Single live birth
CPT/HCPCS: 36415; 59409; 80048; 85025; 85610; 85730; 86593; 86850; 86900; 86901

== ENCOUNTER 2019-04-23 11:42 | Emergency (ER) | payer OTHER ==
[2019-04-23 11:51] VITALS: BMI 28.3
--- NOTE | 2019-04-23 12:30 | PDOC ---
History of Present Illness - General Chief Complaint: Nausea/Vomiting Stated Complaint: DIZZY.VOMITING/NAUSEA Time Seen by Provider: 04/23/19 12:04 History Source: Patient Exam Limitations: No Limitations Past History - Travel Traveled outside of the country in the last 30 days: No Close contact w/someone who was outside of country & ill: No - Past Medical History Allergies/Adverse Reactions: Allergies Allergy/AdvReac Type Severity Reaction Status Date / Time No Known Allergies Allergy Verified 04/23/19 11:51 Home Medications: Ambulatory Orders Ardmore-3 Fatty Acids [Ardmore-3] 1,000 mg PO DAILY 08/21/18 Pediatric Multivitamin No.42 [Flintstones] 1 tab PO DAILY 08/21/18 Meclizine HCl [Antivert -] 25 mg PO TID #21 tablet 04/23/19 Ondansetron [Zofran Odt -] 4 mg SL TID #10 od.tablet 04/23/19 Asthma: No Cancer: No Cardiac Disorders: No COPD: No Diabetes: No HTN: No Seizures: Yes (CHILDHOOD EPILEPSY) Thyroid Disease: No Other medical history: fibromyalgia - Immunization History Immunization Up to Date: Yes - Psycho Social/Smoking Cessation Hx Smoking History: Never smoked Have you smoked in the past 12 months: No Information on smoking cessation initiated: No Hx Alcohol Use: No Drug/Substance Use Hx: No Hx Substance Use Treatment: No Review of Systems - Review of Systems Able to Perform ROS?: Yes Comments:: 04/23/19 15:00 CONSTITUTIONAL: Absent: fever, chills, diaphoresis, generalized weakness, malaise, loss of appetite HEENT: Absent: rhinorrhea, nasal congestion, throat pain, throat swelling, difficulty swallowing, mouth swelling, ear pain, eye pain, visual Changes CARDIOVASCULAR: Absent: chest pain, loss of consciousness, palpitations, irregular heart rate, peripheral edema RESPIRATORY: Absent: cough, shortness of breath, dyspnea with exertion, orthopnea, wheezing, stridor, hemoptysis GASTROINTESTINAL: Present: nausea Absent: abdominal pain, abdominal distension, nausea, vomiting, diarrhea, constipation, melena, hematochezia GENITOURINARY: Absent: dysuria, frequency, urgency, hesitancy, hematuria, flank pain, genital pain MUSCULOSKELETAL: Absent: myalgia, arthralgia, joint swelling SKIN: Absent: rash, itching, pallor HEMATOLOGIC/IMMUNOLOGIC: Absent: easy bleeding, easy bruising, lymphadenopathy, frequent infections ENDOCRINE: Absent: unexplained weight gain, unexplained weight loss, heat intolerance, cold intolerance NEUROLOGIC: Present: dizziness Absent: headache, focal weakness or paresthesias, dizziness, unsteady gait, seizure, mental status changes, bladder or bowel incontinence PSYCHIATRIC: Absent: anxiety, depression, suicidal or homicidal ideation, hallucinations. Is the patient limited Bangladeshi proficient: No *Physical Exam - Vital Signs Last Vital Signs Temp Pulse Resp BP Pulse Ox 98.2 F 69 18 120/57 L 100 04/23/19 11:49 04/23/19 11:49 04/23/19 11:49 04/23/19 11:49 04/23/19 11:49 - Physical Exam Comments: 04/23/19 14:23 GENERAL: Well developed, well nourished. Awake and alert. No acute distress. HEENT: Normocephalic, atraumatic. PERRLA, EOMI. No conjunctival pallor. Sclera are non- icteric. Moist mucous membranes. Oropharynx is clear. NECK: Supple. Full ROM. No JVD. Carotid pulses 2+ and symmetric, without bruits. No thyromegaly. No lymphadenopathy. CARDIOVASCULAR: Regular rate and rhythm. No murmurs, rubs, or gallops. Distal pulses are 2+ and symmetric. PULMONARY: No evidence of respiratory distress. Lungs clear to auscultation bilaterally. No wheezing, rales or rhonchi. ABDOMINAL: Soft. Non-tender. Non-distended. No rebound or guarding. No organomegaly. Normoactive bowel sounds. MUSCULOSKELETAL Normal range of motion at all joints. No bony deformities or tenderness. No CVA tenderness. EXTREMITIES: No cyanosis. No clubbing. No edema. No calf tenderness. SKIN: Warm and dry. Normal capillary refill. No rashes. No jaundice. NEUROLOGICAL: Alert, awake, appropriate. Cranial nerves 2-12 intact. No deficits to light touch and temperature in face, upper extremities and lower extremities. No motor deficits in the in face, upper extremities and lower extremities. Normoreflexic in the upper and lower extremities. Normal speech. Toes are down- going bilaterally. Gait is normal without ataxia. (-) Romberg sign. PSYCHIATRIC: Cooperative. Good eye contact. Appropriate mood and affect. ED Treatment Course - LABORATORY CBC & Chemistry Diagram: 04/23/19 13:00 04/23/19 13:00 Medical Decision Making - Medical Decision Making 04/23/19 14:24 The patient is a 33-year-old female with past medical history of BPPV, presents to the ER today for dizziness, lightheadedness and nausea that started this morning. She states when she woke up from bed and moves her head she felt the room violently spinning around her. She states that the spinning made her nauseous and she threw up so she came to the ER for evaluation. Denies fevers, chills, head trauma, lightheadedness, abdominal pain, difficulty breathing, chest pain and urinary symptoms. A/P: BPPV On exam patient is neurologically intact with no focal findings. Patient's dizziness is reproducible with head movement to the right. No nystagmus noted Likely BPPV. Reglan, Antivert, fluids given with relief of symptoms. Lab work is unremarkable Discharge home to follow-up with ENT I discussed the physical exam findings, ancillary test results and final diagnoses with the patient. I answered all of the patient's questions. The patient was satisfied with the care received and felt comfortable with the discharge plan and treatment plan. The Patient agrees to follow up with the primary care physician/specialist within 24-72 hours. Return precautions were given. Discharge - Discharge Information Problems reviewed: Yes Clinical Impression/Diagnosis: Vertigo Condition: Stable Disposition: HOME - Admission No - Additional Discharge Information Prescriptions: Meclizine HCl [Antivert -] 25 mg PO TID #21 tablet Ondansetron [Zofran Odt -] 4 mg SL TID #10 od.tablet - Follow up/Referral Referrals: Rogers Quezada MD [Staff Physician] - - Patient Discharge Instructions Patient Printed Discharge Instructions: DI for Vertigo Additional Instructions: You were evaluated today for your dizziness. It is most likely vertigo. Please take the meclizine every 8 hours to help prevent the dizziness. You may take the Zofran every 8 hours as needed for nausea or vomiting. Please follow-up with your ENT doctor this week. A referral has also been provided to you. Return to the ER for any new, worsening or concerning symptoms. - Post Discharge Activity Work/Back to School Note: Back to Work
[2019-04-23] MEDS ORDERED: MECLIZINE HCL 25 MG TABLET (FP) PO ONE (12:31)
[2019-04-23] MEDS ORDERED: METOCLOPRAMIDE HCL INJECTION 10 MG/2 ML VIAL IVPB ONE (12:31)
[2019-04-23] MEDS ORDERED: SODIUM CHLORIDE 1,000 ML IV STA (12:31)
[2019-04-23] MEDS ORDERED: METOCLOPRAMIDE HCL INJECTION 10 MG/2 ML VIAL ONE (12:54)
[2019-04-23] MEDS ORDERED: MECLIZINE HCL 12.5 MG TABLET ONE (12:55)
[2019-04-23 13:32] LABS: BASO % 0.2 % (0-2.0); EOS % 0.1 % (0-4.5); HEMATOCRIT 40.8 % (32.4-45.2); HEMOGLOBIN 14.2 GM/dL (10.7-15.3); LYMPH % 10.1 % (8-40); MCH 33.3 pg (25.7-33.7); MCHC 34.7 g/dl (32.0-36.0); MEAN CELL VOLUME 95.9 fl (80-96); MEAN PLT VOLUME 8.8 fl (7.5-11.1); MONO % 2.9 % (3.8-10.2); NEUT % 86.7 % (42.8-82.8); PLATELET COUNT 260 K/MM3 (134-434); RBC 4.26 M/mm3 (3.60-5.2); RDW 12.2 % (11.6-15.6); WHITE BLOOD COUNT 9.9 K/mm3 (4.0-10.0)
[2019-04-23 14:12] LABS: ALBUMIN 3.8 g/dl (3.4-5.0); BILIRUBIN,TOTAL 0.4 mg/dL (0.2-1); BLOOD UREA NITROGEN 11.2 mg/dL (7-18); CALCIUM 8.8 mg/dL (8.5-10.1); CREATININE 0.5 mg/dL (0.55-1.3); POTASSIUM 4.1 mmol/L (3.5-5.1); TOT PROT 7.2 g/dl (6.4-8.2)
[2019-04-23 15:14] VITALS: BP 118/64; PULSE 75; TEMP 98
== END 2019-04-23 15:13 | disposition home or self-care (01) ==
LOC: JER 11:42
PROC: 3E033GC Introduction of Other Therapeutic Substance into Peripheral Vein, Percutaneous Approach (ICD-10-PCS; principal; 2019-04-23)
DX: R42 Dizziness and giddiness (principal); G40.802 Other epilepsy, not intractable, without status epilepticus; M79.7 Fibromyalgia
CPT/HCPCS: 36415; 80053; 84703; 85025; 96374; 96375; 99284-25; J7030